=== PATIENT | female | born 2005 | race Caucasian/White ===

== ENCOUNTER 2025-06-10 14:27 | Outpatient (CLI) | payer BC, SELFPAY ==
[2025-06-13 21:04] LABS: Pap Test Digital Imaging Done
== END 2025-06-10 14:28 | disposition home or self-care (01) ==
LOC: NFLDREF 14:28
PROVIDERS: PCP Family Medicine; Visit Provider Physician Assistant
DX: Z12.4 Encounter for screening for malignant neoplasm of cervix (principal)
CPT/HCPCS: 87624; 87625; 88141; 88142; 88175

== ENCOUNTER 2025-07-04 14:15 | Outpatient (CLI) | payer BC, SELFPAY ==
--- NOTE | 2025-07-04 14:00 | CRLHL7_ITS ---
For Patients: As a result of the Century Cures Act, medical imaging exams and procedure reports are released immediately into your electronic medical record. You may view this report before your referring provider. If you have questions, please contact your health care provider. INDICATION: Excessive and frequent menstruation COMPARISON: None. TECHNIQUE: 2D moreno-scale and color Doppler images were acquired of the pelvis using a transabdominal approach. Patient declined transvaginal imaging. FINDINGS: Sonographic images demonstrate a normal size and smooth outer contour of the uterus. Uterus measures 8.2 cm in length by 4.0 cm in AP diameter by 4.6 cm in transverse dimension. The myometrium has a normal uniform echotexture. The endometrial lining appears normal and measures 4.2 mm in thickness. IUD is present in good position within the endometrial canal. The right ovary measures 2.9 x 1.5 x 2.2 cm in size and the left ovary measures 3.4 x 2.1 x 2.3 cm. The ovaries demonstrate normal arterial and venous blood flow on color Doppler analysis. There are no suspicious fluid collections within the cul-de-sac. IMPRESSION: IUD in good position within the endometrial canal. Endometrial thickness 4.2 millimeters. Dictated by Kolton Rajput MD @ 07/04/2025 8:33:27 PM (Electronically Signed)
== END 2025-07-04 14:16 | disposition home or self-care (01) ==
LOC: US 14:15
PROVIDERS: PCP Family Medicine; Visit Provider Physician Assistant
DX: N92.0 Excessive and frequent menstruation with regular cycle (principal); R93.89 Abnormal findings on diagnostic imaging of other specified body structures
CPT/HCPCS: 76856